=== PATIENT | male | born 1985 | race African-American/Black ===

== ENCOUNTER 2021-04-27 05:44 | Emergency (ER) | payer OTHER ==
[~2021-04-27] VITALS: Ht 185.4 cm; Wt 86.2 kg
--- NOTE | ~2021-04-27 | EMS ---
[facility] [address] [facility] [place] [place] [address] EMS Patient Care Report Name: OVIDIO BRANDON [id number] Admission: 04/27/21 Attend Phys: Discharge: 04/27/21 Date of : [birth year] Report #: [id number] THIS REPORT FOR: //name// Report Transmitted: 04/27/2021 18:55 EMS Care Summary [facility]ident [id number] @ 04/27/2021 04:53 [address]ident [address] [place] [address] Patient OVIDIO BRANDON Male, 35 Years 1985 Patient Address [address] [place] [address] Patient History Back Pain (Chronic), Patient Allergies No known allergies, Patient Medications Advil, Chief Complaint Back pain for 1 week Disposition Transported No Lights/[place] Dispatch Reason Back Pain (Non-Traumatic) Transported To [facility] Narrative 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 The patient is located in the [facility] Old Truck [facility], in a green [employer] [employer] car [facility]. Med 1 went en route with [employer]. Med 1 arrived on scene, to find the patient sitting inside his semi cab; conscious, oriented, and alert. [facility] [address] [place] [address] EMS Patient Care Report Name: OVIDIO BRANDON Room: [facility]#: [id number] Admission: 04/27/21 Attend Phys: Discharge: 04/27/21 Date of : 83 Report #: [id number] The patient denied any trauma or falls. The patient was assisted out of his truck and onto the cot. The patient was secured with safety straps and placed in a position of comfort. The patient self treated himself with taking over the counter pain reliever "Advil". Airway- patent; self maintained. Breathing- regular with good rate and quality. Circulation/Skin- warm, pink, and dry; non-febrile. Back- no abrasions, deformities, bruising, or contusions present. Pain in (R) sacral area radiating into (R) buttocks. Patient also had a complaint of numbness in (R) foot. The patient withdrew from painful stimuli in (R) foot. The patients vitals were monitored while en route to the hospital. The patient wanted to go to the closest hospital. The patient was informed that the closest hospital was [facility] and the next hospital was [facility]. The patient chose to go to [place]. The patient report was called to ED staff at [place], with no questions or orders requested. EMS was informed by ED staff, that they are on "High Volume". The patient displayed mild distress during transport. The patient refused an ice pack or a heat pack. The patient care was transferred over to ED staff and the patient was assisted to the ER bed. The patient was left in room # 9. Initial Vitals @05:34P: 88,R: 18,BP: 142/92,Pain: 8/10,GCS: 15,SpO2: 99,Revised Trauma: 12, @05:43P: 88,R: 18,BP: 139/91,Pain: 8/10,GCS: 15,SpO2: 99,Revised Trauma: 12, @05:21P: 88,R: 18,BP: 152/97,Pain: 8/10,GCS: 15,Temp: 98.1F,SpO2: 99,Revised Trauma: 12, Assessments @05:10MENTAL:Person Oriented,Event Oriented,Place Oriented,Time Oriented,SKIN:HEENT:Eyes: Left Pupil: 5-mm,Eyes: Right Pupil: 5-mm,LUNG SOUNDS:ABDOMEN:PELVIS//GI:EXTREMITIES:Right Leg: Abnormal Sensation,Right Leg: Other,PULSE:Radial: 2+ Normal,NEURO:@05:28MENTAL:Place Oriented,Time Oriented,Event Oriented,Person Oriented,SKIN:HEENT:Eyes: Left Pupil: 5-mm,Eyes: Right Pupil: 5-mm,LUNG SOUNDS:ABDOMEN:PELVIS//GI:EXTREMITIES:Right Leg: Other,Right Leg: Abnormal Sensation,PULSE:Radial: 2+ Normal,NEURO: Impression Back Pain Procedures @05:10 BLS Assessment Response: Unchanged Timeline 04:52,Call Received 04:53,Dispatched 04:55,En Route 05:09,[place] [address] EMS Patient Care Report Name: OVIDIO BRANDON [id number] Admission: 04/27/21 Attend Phys: Discharge: 04/27/21 Date of : 83 Report #: [id number] 05:10,At Patient 05:10,BLS Assessment,Response: Unchanged 05:17,Depart Scene 05:21,BP: 152/97 M,PULSE: 88,RR: 18 R,SPO2: 99 Ox,ETCO2: ,BG: ,PAIN: 8,GCS: 15, 05:34,BP: 142/92 M,PULSE: 88,RR: 18 R,SPO2: 99 Ox,ETCO2: ,BG: ,PAIN: 8,GCS: 15, 05:40,At Destination 05:43,BP: 139/91 M,PULSE: 88,RR: 18 R,SPO2: 99 Ox,ETCO2: ,BG: ,PAIN: 8,GCS: 15, 06:15,Call Closed Disclaimer v1.1 Copyright 2020 [employer] This EMS Care Summary contains data elements from the applicable legal record (which may be displayed differently). It is designed to provide pertinent information for the following purposes: continuity of care, clinical quality, and state data reporting. The complete legal record is available to ED staff and administrators of the receiving hospital in [facility]'s Patient Tracker. All data is provided "as is."
--- NOTE | ~2021-04-27 | EMS ---
[facility] [address] [place] [address] EMS Patient Care Report Name: OVIDIO BRANDON Room: [facility] [place]Carol#: [id number] Admission: 04/27/21 Attend Phys: Discharge: 04/27/21 Date of : [birth year] Report #: [id number] THIS REPORT FOR: //name// Report Transmitted: 04/27/2021 12:34 EMS Care Summary [facility] Incident [id number] @ 04/27/2021 04:53 [address]ident [address] [place] [address] Patient OVIDIO BRANDON Male, 35 Years 1985 Patient Address [address] [place] [address] Patient History Back Pain (Chronic), Patient Allergies No known allergies, Patient Medications Advil, Chief Complaint Back pain for 1 week Disposition Transported No Lights/[place] Dispatch Reason Back Pain (Non-Traumatic) Transported To [facility] Narrative 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 The patient is located in the [facility] Old [facility], in a green [employer] car [facility]. Med 1 went en route with [employer]. Med 1 arrived on scene, to find the patient sitting inside his semi cab; conscious, oriented, and alert. [facility] [address] [place] [address] EMS Patient Care Report Name: OVIDIO BRANODN Room: [facility]#: [id number] Admission: 04/27/21 Attend Phys: Discharge: 04/27/21 Date of : 83 Report #: [id number] The patient denied any trauma or falls. The patient was assisted out of his truck and onto the cot. The patient was secured with safety straps and placed in a position of comfort. The patient self treated himself with taking over the counter pain reliever "Advil". Airway- patent; self maintained. Breathing- regular with good rate and quality. Circulation/Skin- warm, pink, and dry; non-febrile. Back- no abrasions, deformities, bruising, or contusions present. Pain in (R) sacral area radiating into (R) buttocks. Patient also had a complaint of numbness in (R) foot. The patient withdrew from painful stimuli in (R) foot. The patients vitals were monitored while en route to the hospital. The patient wanted to go to the closest hospital. The patient was informed that the closest hospital was [facility] and the next hospital was [facility]. The patient chose to go to [place]. The patient report was called to ED staff at [place], with no questions or orders requested. EMS was informed by ED staff, that they are on "High Volume". The patient displayed mild distress during transport. The patient refused an ice pack or a heat pack. The patient care was transferred over to ED staff and the patient was assisted to the ER bed. The patient was left in room # 9. Initial Vitals @05:34P: 88,R: 18,BP: 142/92,Pain: 8/10,GCS: 15,SpO2: 99,Revised Trauma: 12, @05:43P: 88,R: 18,BP: 139/91,Pain: 8/10,GCS: 15,SpO2: 99,Revised Trauma: 12, @05:21P: 88,R: 18,BP: 152/97,Pain: 8/10,GCS: 15,Temp: 98.1F,SpO2: 99,Revised Trauma: 12, Assessments @05:10MENTAL:Person Oriented,Event Oriented,Place Oriented,Time Oriented,SKIN:HEENT:Eyes: Left Pupil: 5-mm,Eyes: Right Pupil: 5-mm,LUNG SOUNDS:ABDOMEN:PELVIS//GI:EXTREMITIES:Right Leg: Abnormal Sensation,Right Leg: Other,PULSE:Radial: 2+ Normal,NEURO:@05:28MENTAL:Place Oriented,Time Oriented,Event Oriented,Person Oriented,SKIN:HEENT:Eyes: Left Pupil: 5-mm,Eyes: Right Pupil: 5-mm,LUNG SOUNDS:ABDOMEN:PELVIS//GI:EXTREMITIES:Right Leg: Other,Right Leg: Abnormal Sensation,PULSE:Radial: 2+ Normal,NEURO: Impression Back Pain Procedures @05:10 BLS Assessment Response: Unchanged Timeline 04:52,Call Received 04:53,Dispatched 04:55,En Route 05:09,[place] [address] EMS Patient Care Report Name: OVIDIO BRANDON [id number] Admission: 04/27/21 Attend Phys: Discharge: 04/27/21 Date of : 83 Report #: [id number] 05:10,At Patient 05:10,BLS Assessment,Response: Unchanged 05:17,Depart Scene 05:21,BP: 152/97 M,PULSE: 88,RR: 18 R,SPO2: 99 Ox,ETCO2: ,BG: ,PAIN: 8,GCS: 15, 05:34,BP: 142/92 M,PULSE: 88,RR: 18 R,SPO2: 99 Ox,ETCO2: ,BG: ,PAIN: 8,GCS: 15, 05:40,At Destination 05:43,BP: 139/91 M,PULSE: 88,RR: 18 R,SPO2: 99 Ox,ETCO2: ,BG: ,PAIN: 8,GCS: 15, 06:15,Call Closed Disclaimer v1.1 Copyright 2020 [employer] This EMS Care Summary contains data elements from the applicable legal record (which may be displayed differently). It is designed to provide pertinent information for the following purposes: continuity of care, clinical quality, and state data reporting. The complete legal record is available to ED staff and administrators of the receiving hospital in [facility]'s Patient Tracker. All data is provided "as is."
[2021-04-27] MEDS ORDERED: IBU600 MG PO (05:51)
[2021-04-27] MEDS ORDERED: FLEXERIL PO (07:51)
[2021-04-27] MEDS ORDERED: HYDROCODON-ACE1 EAC7 PO (07:51)
[2021-04-27] MEDS ORDERED: PREDNISONE 20 M20 M1 PO (07:52)
[2021-04-27 08:00] VITALS: BP 127/78
== END 2021-04-27 08:00 | disposition home or self-care (01) ==
LOC: M.ERS 05:44
DX: M54.16 Radiculopathy, lumbar region (principal); Z79.899 Other long term (current) drug therapy; Z88.8 Allergy status to other drugs, medicaments and biological substances